=== PATIENT | female | born 1970 | race Caucasian/White ===

== ENCOUNTER 2017-08-11 09:40 | Day surgery (SDC) | payer BC ==
[2017-08-10 15:53] LABS: CLARITY,URINE CLEAR (Clear); COLOR,URINE YELLOW (Yellow); GLUCOSE, URINE NEGATIVE (Neg); KETONES,URINE NEGATIVE (Neg); LEUKOCYTE ESTERASE ,URINE NEGATIVE (Neg); NITRITES, URINE NEGATIVE (Neg); OCCULT BLOOD,URINE NEGATIVE (Neg); PROTEIN,URINE NEGATIVE (Neg); UROBILINOGEN,URINE 0.2 E.U/dL (0.2-1.0)
[2017-08-10 15:58] LABS: UA COLLECTION TYPE CLN CATCH MIDSTREAM
[2017-08-10 16:09] LABS: ALBUMIN 3.7 G/DL (3.4-5.0); ALBUMIN/GLOBULIN RATIO 1.1 (1.1-1.5); ALKALINE PHOSPHATASE 188 IU/L (46-116); BLOOD UREA NITROGEN 6 MG/DL (7-18); BUN/CREATININE RATIO 7.9 (6.6-38.0); CHLORIDE 105 MMOL/L (99-107); CREATININE 0.76 MG/DL (0.40-0.90); PRE OP ANION GAP 12 (8-16); PRE OP AST 87 U/L (10-37); PRE OP BILIRUB, TOTAL 0.8 MG/DL (0.0-1.0); PRE OP GLUCOSE 92 MG/DL (70-104); PRE OP POTASSIUM 3.6 MMOL/L (3.4-5.1); PRE OP SODIUM 141 MMOL/L (135-145); TOTAL CARBON DIOXIDE 24.5 MMOL/L (24-32); TOTAL PROTEIN 7.2 G/DL (6.4-8.2); eGFR 82 ML/MIN
[2017-08-10 16:13] LABS: PRE OP ALT 511 U/L (30-65)
[2017-08-10 16:21] LABS: BASOPHILS % (AUTO) 0.4 % (0-1); EOSINOPHILS # (AUTO) 0.1 X10'3 (0-0.9); EOSINOPHILS % (AUTO) 1.7 % (0-6); LYMPHOCYTES # (AUTO) 2.5 X10'3 (1.1-4.8); LYMPHOCYTES % (AUTO) 29.9 % (21-51); MEAN CORPUSCULAR HEMOGLOBIN 26.6 PG (27.0-31.0); MEAN CORPUSCULAR HGB CONC 33.2 % (33.0-36.5); MEAN PLATELET VOLUME 11.3 FL (7.4-10.4); MONOCYTES # (AUTO) 0.5 X10'3 (0-0.9); MONOCYTES % (AUTO) 6.3 % (2-12); NEUTROPHILS # (AUTO) 5.2 X10'3 (1.8-7.7); NEUTROPHILS % (AUTO) 61.7 % (42-75); PRE OP HEMATOCRIT 34.7 % (35.0-45.0); PRE OP HEMOGLOBIN 11.5 g/dL (12.0-16.0); PRE OP PLATELET COUNT 194 X10'3 (140-440); RED BLOOD COUNT 4.34 X10'6 (4.20-5.60)
[2017-08-10 16:47] LABS: GIANT PLATELET FEW; LARGE PLATELETS MODERATE; PLATELET ESTIMATE NORMAL
[~2017-08-11] VITALS: Ht 165.1 cm; Wt 76.2 kg
[2017-08-11] VITALS (7 sets, daily range): BP systolic 131–149; BP diastolic 70–84
[~2017-08-11 09:40] MED LIST: CHOL100046 PO; HYDR-3964 PO; LIDOcaine 1% (10mg/ml) 2ml vial ONE; MULT-38 PO; ONDA8TAB13 PO; RIVA20TA PO; THYR180T2 PO; VITA1TAB20 PO; cefoxitin sod inj 2,000 MG in dextrose 5%-water 50ml 50 ML IV ONE; famotidine 20mg tablet PO ONE; ringers solution, lacted 1,000 ML IV SCH
[2017-08-11] MEDS ORDERED: ceFAZolin 1000mg inj ONE (10:51)
[2017-08-11] MEDS ORDERED: BUPIVAcaine/PF 2.5 mg/ml (0.25%) 30ml vial ONE (10:51)
[2017-08-11] MEDS ORDERED: epiNEPHrine 1 mg/ml inj ONE (10:52)
[2017-08-11] MEDS ORDERED: sevoflurane 250ml liquid IH ONE (11:02)
[2017-08-11] MEDS ORDERED: glycopyrrolate 0.2mg/ml inj ONE (11:02)
[2017-08-11] MEDS ORDERED: midazolam 2 mg/2 ml injection ONE (11:03)
[2017-08-11] MEDS ORDERED: fentaNYL /PF 50mcg/ml 5ml ampule ONE (11:04)
[2017-08-11] MEDS ORDERED: ringers solution, lacted 1,000 ML IV ONE (11:24)
[2017-08-11] MEDS ORDERED: labetalol 20mg/4ml (5mg/ml) syringe IV PRN (11:25)
[2017-08-11] MEDS ORDERED: ondansetron/PF 4mg/2ml inj IV PRN (11:25)
[2017-08-11] MEDS ORDERED: hydrALAZINE 20mg/ml inj. IV PRN (11:25)
[2017-08-11] MEDS ORDERED: meperidine/PF 50mg/ml syringe IV PRN ×2 (11:25)
[2017-08-11] MEDS ORDERED: meperidine/PF 50mg/ml syringe IV ONE (11:25)
[2017-08-11] MEDS ORDERED: morphine 4 MG/ML inj SYRINge IV PRN ×2 (11:25)
[2017-08-11] MEDS ORDERED: ondansetron/PF 4mg/2ml inj ONE (11:31)
[2017-08-11] MEDS ORDERED: rocuronium 10mg/ml inj IV ONE (11:31)
[2017-08-11] MEDS ORDERED: dexamethasone sod phosphate 4mg/ml inj. ONE (11:31)
[2017-08-11] MEDS ORDERED: propofol inj 20 ML IV ONE (11:32)
[2017-08-11] MEDS ORDERED: LIDOcaine 2% (20mg/ml) 5ml vial ONE (11:32)
[2017-08-11] MEDS ORDERED: neostigmine methylsulfate 1 MG/ML 10ml vial ONE (11:33)
== END 2017-08-11 12:55 | disposition home or self-care (01) ==
LOC: PAS 09:40
PROVIDERS: ATTEND Surgery
DX: K80.12 Calculus of gallbladder with acute and chronic cholecystitis without obstruction (principal); E03.9 Hypothyroidism, unspecified; Z88.6 Allergy status to analgesic agent; Z86.718 Personal history of other venous thrombosis and embolism; Z88.1 Allergy status to other antibiotic agents; Z79.891 Long term (current) use of opiate analgesic; Z79.899 Other long term (current) drug therapy; Z98.890 Other specified postprocedural states
CPT/HCPCS: 36415; 47562; 80053; 81003; 85025; J0171; J0690; J0694; J1100; J2001; J2175; J2250; J2405; J2704; J2710; J3010; J3490; J7060; J7120; A7000

== ENCOUNTER 2017-08-27 09:17 | Outpatient (CLI) | payer BC ==
[~2017-08-27 09:17] MED LIST changes: -LIDOcaine 1% (10mg/ml) 2ml vial ONE; -cefoxitin sod inj 2,000 MG in dextrose 5%-water 50ml 50 ML IV ONE; -famotidine 20mg tablet PO ONE; -ringers solution, lacted 1,000 ML IV SCH
== END 2017-08-27 23:59 | disposition home or self-care (01) ==
LOC: RAD 09:17
PROVIDERS: ATTEND Surgery
DX: K83.8 Other specified diseases of biliary tract (principal); Q44.5 Other congenital malformations of bile ducts; Z90.49 Acquired absence of other specified parts of digestive tract
CPT/HCPCS: 74181

== ENCOUNTER 2021-12-05 11:30 | Inpatient (IN) | payer BC ==
[~2021-12-05] VITALS: Ht 165.1 cm; Wt 81.8 kg
[2021-12-05 12:18] LABS: BASOPHILS % (AUTO) 0.2 % (0-1); EOSINOPHILS % (AUTO) 0.2 % (0-6); HEMATOCRIT 39.1 % (35.0-45.0); HEMOGLOBIN 12.9 g/dl (12.0-16.0); LYMPHOCYTES # (AUTO) 0.8 X10'3 (1.1-4.8); LYMPHOCYTES % (AUTO) 7.4 % (21-51); MEAN CORPUSCULAR HEMOGLOBIN 27.6 PG (27.0-31.0); MEAN CORPUSCULAR HGB CONC 33.1 g/dL (33.0-36.5); MEAN CORPUSCULAR VOLUME 83.2 FL (78-98); MONOCYTES # (AUTO) 0.6 X10'3 (0-0.9); MONOCYTES % (AUTO) 5.5 % (2-12); NEUTROPHILS # (AUTO) 9.2 X10'3 (1.8-7.7); NEUTROPHILS % (AUTO) 86.7 % (42-75); PLATELET COUNT 223 X10'3 (140-440); RED BLOOD COUNT 4.69 X10'6 (4.20-5.60); RED CELL DISTRIBUTION WIDTH 19.3 % (11.5-14.5); WHITE BLOOD COUNT 10.7 X10'3 (4.5-11.0)
[2021-12-05 12:38] LABS: ALBUMIN/GLOBULIN RATIO 1.1 (1.1-1.5); ALKALINE PHOSPHATASE 267 IU/L (46-116); ANION GAP 11 (8-16); BILIRUBIN,TOTAL 2.4 MG/DL (0.1-1.0); BLOOD UREA NITROGEN 14 MG/DL (7-18); BUN/CREATININE RATIO 17.7 (6.6-38.0); CALCIUM 8.9 MG/DL (8.5-10.1); CHLORIDE 103 MMOL/L (99-107); CREATININE 0.79 MG/DL (0.40-0.90); GLUCOSE 106 MG/DL (70-104); LIPASE 192 U/L (73-393); SODIUM 139 MMOL/L (135-145); TOTAL CARBON DIOXIDE 25.4 MMOL/L (24-32); TOTAL PROTEIN 7.6 G/DL (6.4-8.2); eGFR 77 ML/MIN
[2021-12-05 12:40] LABS: ALANINE AMINOTRANSFERASE 1090 U/L (12-78); ASPARTATE AMINO TRANSFERASE 1029 U/L (10-37)
[2021-12-05 13:03] LABS: ANISOCYTOSIS 2+; PLATELET ESTIMATE NORMAL
[2021-12-05 13:04] LABS: ELLIPTOCYTES FEW; LARGE PLATELETS MODERATE
--- NOTE | 2021-12-05 15:32 | NUR ---
Transported to [place] via wheelchair by tech.
[2021-12-05 16:22] LABS: CLARITY,URINE CLOUDY (Clear); GLUCOSE, URINE NEGATIVE (Neg); KETONES,URINE >=80 mg/dl (Neg); LEUKOCYTE ESTERASE ,URINE NEGATIVE (Neg); NITRITES, URINE NEGATIVE (Neg); OCCULT BLOOD,URINE NEGATIVE (Neg); PROTEIN,URINE TRACE mg/dl (Neg)
[2021-12-05 16:25] LABS: URINE HCG NEGATIVE (NEG)
[2021-12-05 16:37] LABS: COLOR,URINE AMBER (Yellow); UA COLLECTION TYPE NON-SPECIFIED
[2021-12-05 16:38] LABS: MUCUS STRANDS MANY /LPF (Neg); SQUAMOUS EPITHELIAL CELL,UR MANY /LPF (FEW)
[2021-12-05 16:39] LABS: BACTERIA,URINE 1+ /HPF (Neg); RBC,URINE 0-2 /HPF (0-2); WBC,URINE 0-4 /HPF (0-4)
[2021-12-05] MEDS ORDERED: normal saline 1000ml 1,000 ML IV ONE (16:45)
[2021-12-05] MEDS ORDERED: piperacillin/tazo 4.5gm/100ml 100 ML IV ONE (17:55)
[2021-12-05] MEDS ORDERED: acetaminophen 325mg tablet PO PRN (20:00)
[2021-12-05] MEDS ORDERED: morphine 2 MG/ML inj. syringe IV PRN ×2 (20:00)
[2021-12-05] MEDS ORDERED: POTASSIUM BICARB 20meq eff tab 20 MEQ TABLET.EFF PO PRN ×2 (20:00)
[2021-12-05] MEDS: K and/or MAG REPLACEMENT MC SCH (20:00)
[2021-12-05] MEDS ORDERED: magnesium 4gm in 100ml NS 100 ML IV PRN (20:00)
[2021-12-05] MEDS ORDERED: magnesium Cl slow-release 64mg tablet PO PRN (20:00)
[2021-12-05] MEDS ORDERED: magnesium 2GM in 50ml NS 50 ML IV PRN (20:00)
[2021-12-05] MEDS ORDERED: ondansetron/PF 4mg/2ml inj IV PRN (20:00)
[2021-12-05] MEDS ORDERED: potassium CL 10mEq/100ml bag 100 ML IV PRN (20:00)
[2021-12-05] MEDS: normal saline 1000ml 1,000 ML IV SCH (20:29)
[2021-12-05] MEDS ORDERED: SUMA100T16 PO (20:36)
[2021-12-05] MEDS ORDERED: THYR90TA12 PO (20:36)
[2021-12-05] MEDS ORDERED: SUMAtriptan 25 MG tablet PO ONE (20:45)
[2021-12-05 22:45] VITALS: BP 138/65
--- NOTE | 2021-12-05 23:23 | NUR ---
ARRIVED VIA GURNEY AT 2240 AND AMBULATED TO THE BED FROM THE HALLWAY. VITAL SIGNS TAKEN AND RECORDED, PAIN NOW IS 5/10 AND IS PARTLY RUGGIERO PAIN THAT SHE WAS GIVEN IMITREX FOR IN THE ED. PATIENT EDUCATED THAT SHE WILL BE NPO AT MIDNIGHT FOR MRCP IN THE MORNING AND STATED UNDERSTANDING. CALL LIGHT IN REACH AND ENC'D IT'S USE FOR ANY NEEDS.
[2021-12-06] VITALS (14 sets, daily range): BP systolic 98–143; BP diastolic 62–96
[2021-12-06] MEDS ORDERED: PROG200C11 PO (04:48)
[2021-12-06] MEDS ORDERED: LIOT25TA12 PO (04:48)
[2021-12-06] MEDS: normal saline 1000ml 1,000 ML IV SCH ×2 (06:00→16:20)
--- NOTE | 2021-12-06 06:17 | NUR ---
Problems reprioritized. Patient report given, questions answered & plan of care reviewed with JENNY DOWNING.
--- NOTE | 2021-12-06 06:47 | NUR ---
PAGER ID: [phone] MESSAGE: JENNY DOWNING [phone] RE: Amanda BARNARD [id number]. PT VERY ANXIOUS REQUESTING ATIVAN. THANK YOU
[2021-12-06 06:52] LABS: BASOPHILS % (AUTO) 0.4 % (0-1); EOSINOPHILS # (AUTO) 0.1 X10'3 (0-0.9); EOSINOPHILS % (AUTO) 1.1 % (0-6); HEMOGLOBIN 12.1 g/dl (12.0-16.0); LYMPHOCYTES # (AUTO) 1.2 X10'3 (1.1-4.8); LYMPHOCYTES % (AUTO) 11.1 % (21-51); MEAN CORPUSCULAR HEMOGLOBIN 28.3 PG (27.0-31.0); MEAN CORPUSCULAR HGB CONC 33.7 g/dL (33.0-36.5); MEAN PLATELET VOLUME 11.5 FL (7.4-10.4); MONOCYTES # (AUTO) 0.8 X10'3 (0-0.9); MONOCYTES % (AUTO) 7.8 % (2-12); NEUTROPHILS # (AUTO) 8.4 X10'3 (1.8-7.7); NEUTROPHILS % (AUTO) 79.6 % (42-75); PLATELET COUNT 175 X10'3 (140-440); RED BLOOD COUNT 4.29 X10'6 (4.20-5.60); WHITE BLOOD COUNT 10.5 X10'3 (4.5-11.0)
[2021-12-06 07:19] LABS: ALANINE AMINOTRANSFERASE 689 U/L (12-78); ALBUMIN 3.3 G/DL (3.4-5.0); ALKALINE PHOSPHATASE 217 IU/L (46-116); ANION GAP 16 (8-16); ASPARTATE AMINO TRANSFERASE 334 U/L (10-37); BILIRUBIN,TOTAL 1.7 MG/DL (0.1-1.0); BLOOD UREA NITROGEN 8 MG/DL (7-18); BUN/CREATININE RATIO 11.1 (6.6-38.0); CALCIUM 7.9 MG/DL (8.5-10.1); CHLORIDE 108 MMOL/L (99-107); CREATININE 0.72 MG/DL (0.40-0.90); GLUCOSE 76 MG/DL (70-104); MAGNESIUM 1.7 MG/DL (1.5-2.4); POTASSIUM 3.6 MMOL/L (3.5-5.1); SODIUM 145 MMOL/L (135-145); TOTAL CARBON DIOXIDE 21.5 MMOL/L (24-32); TOTAL PROTEIN 6.7 G/DL (6.4-8.2); eGFR 86 ML/MIN
[2021-12-06] MEDS: K and/or MAG REPLACEMENT MC SCH ×2 (08:00→20:00)
--- NOTE | 2021-12-06 08:10 | NUR ---
PAGER ID: [phone] MESSAGE: JENNY DOWNING [phone] RE: JULIO CESAR BARNARD [id number]. 2ND PAGE, PT NEEDS ATIVAN FOR MRCP PROCEDURE. THANK YOU
[2021-12-06] MEDS ORDERED: LORazepam 2 mg/ml vial IV ONE (08:20)
[2021-12-06] MEDS ORDERED: MIDAZolam 1 MG/ML 5ML VIAL ONE (09:03)
[2021-12-06] MEDS ORDERED: fentaNYL/PF 50MCG/1 ML 2ML syringe ONE (09:03)
[2021-12-06] MEDS ORDERED: LIDOcaine Viscous 15ml cup ONE (09:04)
[2021-12-06] MEDS ORDERED: diphenhydrAMINE 50 mg/ml inj ONE (09:04)
[2021-12-06] MEDS ORDERED: levoFLOXACIN-Levaquin 500mg/D5 0 ML IV ONE (09:04)
[2021-12-06] MEDS ORDERED: glucagon, human recombinant 1mg kit ONE (09:04)
[2021-12-06] MEDS ORDERED: iohexol 300 MG/1 ML 50ml polymer ONE ×2 (09:16→09:17)
--- NOTE | 2021-12-06 18:43 | NUR ---
Patient in room [facility]TH[facility] 4011. I have received report from JENNY DOWNING and had the opportunity to ask questions and assume patient care.
[2021-12-07] MEDS: piperacillin/tazo 3.375gm/50ml 50 ML IV SCH ×2 (00:09→07:11)
[2021-12-07 02:00] VITALS: BP 122/71
[2021-12-07] MEDS: normal saline 1000ml 1,000 ML IV SCH (04:15)
[2021-12-07 06:00] VITALS: BP 115/61
--- NOTE | 2021-12-07 06:29 | NUR ---
Problems reprioritized. Patient report given, questions answered & plan of care reviewed with JENNY DOWNING.
[2021-12-07 07:43] LABS: BASOPHILS % (AUTO) 0.6 % (0-1); EOSINOPHILS # (AUTO) 0.3 X10'3 (0-0.9); EOSINOPHILS % (AUTO) 3.4 % (0-6); HEMATOCRIT 31.6 % (35.0-45.0); HEMOGLOBIN 10.5 g/dl (12.0-16.0); LYMPHOCYTES # (AUTO) 1.5 X10'3 (1.1-4.8); LYMPHOCYTES % (AUTO) 19.3 % (21-51); MEAN CORPUSCULAR HEMOGLOBIN 28.1 PG (27.0-31.0); MEAN CORPUSCULAR HGB CONC 33.2 g/dL (33.0-36.5); MEAN CORPUSCULAR VOLUME 84.6 FL (78-98); MEAN PLATELET VOLUME 11.3 FL (7.4-10.4); MONOCYTES # (AUTO) 0.6 X10'3 (0-0.9); MONOCYTES % (AUTO) 7.5 % (2-12); NEUTROPHILS # (AUTO) 5.3 X10'3 (1.8-7.7); NEUTROPHILS % (AUTO) 69.2 % (42-75); PLATELET COUNT 142 X10'3 (140-440); RED BLOOD COUNT 3.73 X10'6 (4.20-5.60); RED CELL DISTRIBUTION WIDTH 19.6 % (11.5-14.5); WHITE BLOOD COUNT 7.7 X10'3 (4.5-11.0)
[2021-12-07] MEDS: K and/or MAG REPLACEMENT MC SCH (08:00)
[2021-12-07 08:01] LABS: ALANINE AMINOTRANSFERASE 396 U/L (12-78); ALBUMIN 2.9 G/DL (3.4-5.0); ALBUMIN/GLOBULIN RATIO 0.9 (1.1-1.5); ALKALINE PHOSPHATASE 174 IU/L (46-116); ANION GAP 13 (8-16); ASPARTATE AMINO TRANSFERASE 103 U/L (10-37); BILIRUBIN,TOTAL 0.7 MG/DL (0.1-1.0); BLOOD UREA NITROGEN 6 MG/DL (7-18); BUN/CREATININE RATIO 10.3 (6.6-38.0); CALCIUM 7.6 MG/DL (8.5-10.1); CHLORIDE 107 MMOL/L (99-107); CREATININE 0.58 MG/DL (0.40-0.90); GLUCOSE 95 MG/DL (70-104); MAGNESIUM 1.7 MG/DL (1.5-2.4); POTASSIUM 3.6 MMOL/L (3.5-5.1); SODIUM 142 MMOL/L (135-145); TOTAL CARBON DIOXIDE 21.8 MMOL/L (24-32); TOTAL PROTEIN 6.1 G/DL (6.4-8.2); eGFR > 90 ML/MIN
[2021-12-07 10:48] LABS: ANISOCYTOSIS 2+; LARGE PLATELETS MODERATE; PLATELET ESTIMATE DECREASED
[2021-12-07 10:51] LABS: BURR CELLS 1+
--- NOTE | 2021-12-07 11:27 | NUR ---
pATIENT DISCHARGED IN STABLE CONDITION TO HOME WITH SPOUSE. IV REMOVED TIP INTACT NO COMPLICATIONS. BELONGINGS SENT WITH PATIENT. PT EDUCATED ON DISCHARGE FOLLOW UP
== END 2021-12-07 11:27 | disposition home or self-care (01) | DRG 446 ==
LOC: ER 11:31 → ED HOLD 20:02 → ORTHO 4S 22:40
PROVIDERS: ADMIT Internal Medicine; ATTEND Internal Medicine
PROC: 0FC98ZZ Extirpation of Matter from Common Bile Duct, Via Natural or Artificial Opening Endoscopic (ICD-10-PCS; principal; 2021-12-06)
PROC: 0F798DZ Dilation of Common Bile Duct with Intraluminal Device, Via Natural or Artificial Opening Endoscopic (ICD-10-PCS; 2021-12-06)
DX: K80.50 Calculus of bile duct without cholangitis or cholecystitis without obstruction (principal); Z87.442 Personal history of urinary calculi; Z90.49 Acquired absence of other specified parts of digestive tract; Z88.8 Allergy status to other drugs, medicaments and biological substances; Z79.899 Other long term (current) drug therapy
CPT/HCPCS: 36415; 43262; 43264; 43274; 74176; 74181; 76700; 80053; 80329; 81001; 81025; 83690; 83735; 85008; 85025; 87040; 87081; 99152; 99153; 99285; A4620; C1769; C1773; C2625; G0378; J1200; J1610; J1956; J2060; J2250; J2543; J3010; J7030; Q9967